=== PATIENT | male | born 1960 | race Caucasian/White ===

== ENCOUNTER 2018-10-07 07:08 | Day surgery (SDC) | payer BC, MEDICAID ==
--- NOTE | 2018-09-24 16:27 | HP ---
PREOPERATIVE HISTORY AND PHYSICAL: DATE OF ADMISSION/SURGERY: 10/07/18 - [facility] DATE OF OFFICE VISIT/ENCOUNTER: 09/24/18 ATTENDING SURGEON: Jannie Perez MD * (DICTATED BY DRAKE FOLEY) PROCEDURE: Right long finger excision mass. CHIEF COMPLAINT: Mass, right long finger. 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 He has had it drained and removed in the past, that was about 10 years ago, but it occurred. He is not complaining of any pain. There was no injury there he recalls. He denies any associated numbness or tingling. He is bothered enough by the mass and he would like to have it surgically removed. PAST MEDICAL HISTORY: 1. Anxiety/depression. 2. History of pneumonia. PAST SURGICAL HISTORY: 1. Appendectomy in 1989. 2. Right long finger excision mass 10 years ago. CURRENT MEDICATIONS: 1. Adderall 30 mg 3 times a day. 2. Aripiprazole 15 mg daily. 3. Fluoxetine HCL 40 mg daily. 4. Ventolin inhaler 1 to 2 inhalations q.4 hours p.r.n. 5. Wellbutrin XL 300 mg daily. 6. Wellbutrin XL 150 mg daily. ALLERGIES: No known drug allergies, but he does have allergies to buckwheat and walnuts. FAMILY MEDICAL HISTORY: Cancer and hypertension. 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 He denies tobacco use, recreational drug use and does not drink alcohol. REVIEW OF SYSTEMS: Negative for general, cephalic, cardiovascular, respiratory , GI, , other musculoskeletal, integumentary, endocrine, neurologic, and hematologic symptoms. Infectious Disease: Negative for MRSA, hepatitis C, HIV. PHYSICAL EXAMINATION GENERAL: Well-developed, well-nourished 58-year-old male, in no acute distress. VITAL SIGNS: Height 5 feet 9 inches, weight 192 pounds. Pulse rate 92, blood pressure 158/82. HEENT: Normocephalic, atraumatic. Pupils are equal, round, and reactive to light and accommodation. Extraocular movements are intact. Throat is clear. NECK: Supple. No palpable lymph nodes. PULMONARY: Lungs are clear to auscultation bilaterally. No wheezes, rales, or rhonchi. CARDIOVASCULAR: Regular rate and rhythm. S1, S2. No murmurs, rubs, or gallops. No edema. ABDOMEN: Positive bowel sounds, soft, nontender. NEUROLOGICAL: Alert and oriented x3. Cranial nerves II through XII are intact. Sensation is intact to light touch. MUSCULOSKELETAL: On exam of his right long finger, there is a soft subcutaneous mass just distal to the DIP flexion crease. It is nontender. He has full range of motion of the finger with flexion and extension. He has normal neurovascular function. IMPRESSION: Right long finger mass. PLAN: The patient is scheduled to undergo a right long finger excision mass with Dr. Perez on 10/07/18. He will return to the office 10 days postop for followup and suture removal. A prescription for Tylenol with Codeine was e- scribed to the patient's pharmacy for postoperative pain management. DRAKE FOLEY [id number]/CPS #: [id number] SOPHIA
[~2018-10-07 07:08] MED LIST: Buffered Lidocaine 1% SYRIN* 1 ML/SYRINGE INTRADERM ONE; Dexamethasone IV* 4 MG/ML 1 ML (4 MG) IV SLOW PU ONE; Dexamethasone IV* 4 MG/ML 1 ML (4 MG) ONE; Famotidine IV* 10 MG/ML 2 ML (20 mg) IV ONE; Famotidine IV* 10 MG/ML 2 ML (20 mg) ONE; Lactated Ringers 1000 ML Bag* 1,000 ML IV SCH; Lidocaine 1% INJ* 10 MG/ML 30 ML SDV ONE
[2018-10-07] MEDS ORDERED: Naloxone* 0.4 MG/ML 1 ML VIAL IV PRN (08:20)
[2018-10-07] MEDS ORDERED: Midazolam* 1 MG/ML 5 ML VIAL (5 MG) ONE ×2 (08:22)
[2018-10-07] MEDS ORDERED: fentaNYL* 50 MCG/ML 2 ML VIAL (100 MCG VIAL) ONE ×2 (08:22)
[2018-10-07] MEDS ORDERED: Ondansetron INJ* 2 MG/ML VIAL ONE ×2 (08:23)
[2018-10-07] MEDS ORDERED: Ketorolac INJ* 30 MG/ML 1 ML VIAL ONE ×2 (08:23)
[2018-10-07] MEDS ORDERED: Propofol* 10 MG/ML 20 ML BTL ONE ×2 (08:23)
[2018-10-07 09:09] VITALS: BP 125/83
--- NOTE | 2018-10-07 11:40 | OP ---
DATE OF OPERATION: 10/07/18 [facility] DATE OF : 58 SURGEON: Dr. Perez. POLICY AND PLANNING MANAGER: DRAKE Ramirez. ANESTHESIA: Local MAC. PRE-OP DIAGNOSIS: Right long finger mass. POST-OP DIAGNOSIS: Right long finger mass. OPERATIVE PROCEDURE: Removal of right long finger mass. ESTIMATED BLOOD LOSS: Zero. TOURNIQUET TIME: Approximately 15 minutes. INDICATIONS FOR PROCEDURE: Gera is a 58-year-old man who has an enlarging mass on the volar aspect of his right middle finger distal to the DIP flexion crease. 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 He presents for removal. DESCRIPTION OF PROCEDURE: The patient was brought to the operating room, was given a sedation anesthetic and a digital block with 10 cc of 1% plain lidocaine. The skin of his right hand and forearm was prepped and draped in the usual sterile fashion. The middle finger was exsanguinated with a Tourni- Cot, which was left in place for the duration of the procedure. A diagonal incision was made centered over the mass, and we dissected bluntly through the subcutaneous tissue. Indeed, the mass was a vascular mass which was well circumscribed and easily removed and sent for pathology. The wound was irrigated and skin edges reapproximated with 4-0 nylon suture. The wound was dressed with Xeroform, 4x4, Webril, and an Elliot wrap. Patient tolerated the procedure well and was brought to the recovery room in good condition. [id number]/CPS #: [id number] MTDD
== END 2018-10-07 09:29 | disposition home or self-care (01) ==
LOC: OREAST 07:08
PROVIDERS: ATTEND Orthopaedic Surgery
DX: D18.01 Hemangioma of skin and subcutaneous tissue (principal); F41.8 Other specified anxiety disorders
CPT/HCPCS: 88305; J1100; J1885; J2250; J2405; J2704; J3010